=== PATIENT | male | born 1950 | race Caucasian/White ===

== ENCOUNTER → 2023-12-24 14:09 | Outpatient (CLI) | payer OTHER, SELFPAY ==
--- NOTE | 2023-12-24 14:37 | EKG_ITS ---
[address] [address] Test Date: 2023-12-24 Pat Name: Cameron Thao Department: [facility] Room: Gender: Male Optical Worker: TIESHA : 1950 Requested By: Order Number: [id number] Reading MD: Mervin Franco Measurements Intervals Anita Rate: 73 P: 55 MS: 226 QRS: 37 QRSD: 70 T: 25 QT: 344 QTc: 378 Interpretive Statements Sinus rhythm with marked sinus arrhythmia with 1st degree AV block Electronically Signed On 12-26-2023 18:35:54 PDT by Mervin Franco
[2023-12-24 15:03] LABS: Add Manual Diff / Slide Review NO; Basophils Absolute Auto 100 /uL (0-100); Basophils Percent Auto 1.1 % (0-2); Eosinophils Absolute Auto 100 /uL (0-450); Eosinophils Percent Auto 2.4 % (2-4); Hematocrit 37.9 % (41-53); Hemoglobin 12.9 g/dL (13.5-17.5); Lymphocytes Absolute Auto 900 /uL (1100-4500); Lymphocytes Percent Auto 17.6 % (25-40); Mean Corpuscular Hemoglobin 32.7 PG (26-34); Monocytes Absolute Auto 500 /uL (0-900); Monocytes Percent Auto 8.5 % (3-14); Neutrophils Absolute Auto 3800 /uL (1500-7000); Neutrophils Percent Auto 70.4 % (50-75); Platelet Count 231 X10^3/uL (150-400); Red Blood Cell Count 3.94 X10^6/uL (4.5-5.9); Red Cell Distribution Width 13.8 % (11.6-14.8); White Blood Cell Count 5.4 X10^3/uL (4.5-11.0)
[2023-12-24 15:19] LABS: Albumin 3.9 g/dL (3.5-5.0); BUN Creatinine Ratio 20.4 (6-22); Blood Urea Nitrogen 19 mg/dL (9-20); C-Reactive Protein Quant < 0.5 mg/dL (<1.0); Calcium 8.7 mg/dL (8.4-10.2); Carbon Dioxide 30 mmol/L (22-32); Chloride 101 mmol/L (98-107); Estimated Glomerular Filt Rate > 60 mL/min (>60); Glucose 290 mg/dL (80-110); HEMOLYSIS < 15 (0-50); Sodium 135 mmol/L (137-145)
[2023-12-24 15:21] LABS: Erythrocyte Sedimentation Rate 10 MM/HR (0-15); Hemoglobin A1C% w Est Avg Glu 7.2 % (4.0-6.0)
[2023-12-24 15:24] LABS: Prealbumin 20.8 mg/dL (17.6-36.0)
[2023-12-24 16:29] LABS: Vitamin D 25 Hydroxy (D3) 30.4 ng/mL (30.0-100.0)
[2023-12-26 03:10] LABS: Fructosamine 298 umol/L (0-285)
== END ==
PROVIDERS: PCP Optometrist; Referring Provider Orthopaedic Surgery Adult Reconstructive Orthopaedic Surgery; Visit Provider Orthopaedic Surgery Adult Reconstructive Orthopaedic Surgery
DX: Z01.818 Encounter for other preprocedural examination (principal); R77.0 Abnormality of albumin
CPT/HCPCS: 36415; 80048; 82040; 82306; 82985; 83036; 84134; 85025; 85651; 86140; 93005

== ENCOUNTER 2024-01-25 10:07 | Inpatient (IN) | payer OTHER, SELFPAY ==
[2024-01-21 08:49] VITALS: BMI 23.5
[2024-01-25] VITALS (21 sets, daily range): BP systolic 69–151; BP diastolic 23–98; PULSE 72–110; RESP 10–22; TEMP 35.7–36.6; O2SAT 92–100; BMI 23.5
--- NOTE | 2024-01-25 | DI.RAD.S_ITS ---
PROCEDURE: XR KNEE RT 1TO2V INDICATIONS: INTER OP RT KNEE REVISION TECHNIQUE: 1 view(s) of the knee acquired. COMPARISON: [facility] [place], XR KNEE ARTHRITIC SERIES , 12/24/2023, 11:47. FINDINGS: Bones: Knee arthroplasty. No acute displaced fracture or dislocation Soft tissues: Postoperative changes. IMPRESSION: Postoperative changes for right knee arthroplasty revision. Dictated by: Gustabo Metzger M.D. on 01/25/2024 at 15:11 Approved by: Gustabo Metzger M.D. on 01/25/2024 at 15:12
--- NOTE | 2024-01-25 | PATH_ITS ---
[facility] Accession Number: [id number] No. of containers..01 Tissue . 01 Material submitted: . femur - ANTERIOR FEMUR RIGHT KNEE . 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 Negative for significant atypia or malignancy. MRV 01/31/2024 1351 Local . 01 Electronically signed: . Brandon Rodriguez MD, Pathologist NPI- [id number] . 01 Gross description: . Specimen is received in formalin, labeled with two patient identifiers and designated anterior femur right knee, and consists of a 8.5 x 3.0 x 0.4 cm huertas-white fibromembranous laminated tissue partially surfaced by yellow lobulated adipose tissue and a red velvety focally hemorrhagic tissue. No bone is identified. Sectioning through the tissue shows focal areas of fibrosis. Curing Press Maintainer section is submitted in cassette A1. ([id number]) /V 01/29/2024 1423 Local . 01 Microscopic: . Microscopic examination reveals papillary proliferation of synovial cells with collections of macrophages, multinucleated giant cells, inflammatory cells, and hemosiderin-laden macrophages. Negative for necrosis, atypia or increased mitotic activity, on help desk representative section examined. . In summary, the histologic features support the diagnosis. . As part of ongoing engagement quality consultant, this case is also reviewed by Dr. Nora Loaiza, who agrees with the interpretation. . 01 Pathologist provided ICD-10: D48.19, M17.11, Z96.651, T84.012A . 01 CPT . 642559 Specimen Comment: A courtesy copy of this report has been sent to [facility] Performed at: [address] [facility] [place] [address] [address] [address], [place], [place] [id number] MD Frantz Prasad MD Phone: [phone]
--- NOTE | 2024-01-25 06:00 | DI.RAD.S_ITS ---
PROCEDURE: XR KNEE RT 1TO2V INDICATIONS: TKA TECHNIQUE: 2 view(s) of the knee acquired. COMPARISON: [facility], , XR KNEE RT 1TO2V, 01/25/2024, 14:55. FINDINGS: Bones: Patient is status post knee joint arthroplasty. Hardware components are in expected positions. Visualized bony structures are intact. Soft tissues: Overlying postoperative changes are noted. IMPRESSION: Expected post-operative appearance of a knee arthroplasty. Dictated by: Herb Sampson M.D. on 01/25/2024 at 17:13 Approved by: Herb Sampson M.D. on 01/25/2024 at 17:13
--- NOTE | 2024-01-25 10:28 | PM.PREOP ---
Pre-operative Note Interval Note History & Physical reviewed/Exam performed by Physician: Yes Changes to H&P: No
[2024-01-25] MEDS: LACTATED RINGERS 1,000 ML 42 ML IV ×2 (10:49→13:44)
[2024-01-25] MEDS: MELOXICAM 7.5 MG TABLET 15 MG PO (10:50)
[2024-01-25] MEDS: ACETAMINOPHEN 325 MG TABLET 975 MG PO ×2 (10:51→21:40)
--- NOTE | 2024-01-25 11:10 | SUR.OPER ---
Supine on padded OR bed. Pillow under head, arms secured on padded armboards <90 degree abduction. Safety belt across torso. Non-operative leg secured with tape over blanket over lower leg. Operative leg secured in DeMayo/Melchor/Nathe positioner. Foam padded brace at thigh of operative leg.
[2024-01-25] MEDS: LACTATED RINGERS 1,000 ML 120 ML IV (11:58)
[2024-01-25] MEDS: CEFAZOLIN 2 GM/100 ML PREMIX 100 ML IV ×2 (12:08→19:46)
[2024-01-25] MEDS: TRANEXAMIC ACID 1,000 MG VIAL 1000 MG INJ ×2 (12:18→15:13)
[2024-01-25] MEDS: ROPIVACAINE/EPI/CLONIDINE/KET 50 ML SYRINGE INJ (12:45)
[2024-01-25] MEDS: fentaNYL 100 MCG/2 ML INJ ×2 (16:35→16:53)
[2024-01-25] MEDS: hydrOXYzine 50 MG/ML INJ 25 MG IM (16:39)
--- NOTE | 2024-01-25 16:41 | PM.OP.1 ---
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 Post-op diagnosis: same Procedure & Clinicians Procedure: Revision of prior unicompartmental knee arthroplasty to constrained stemmed total knee arthroplasty with patellar resurfacing and tibial cone placement Same procedure as scheduled: Yes Surgeon: Magen Hartley Hr Coordinator: Bridgett Muse Anesthesia Type: General, Spinal and Local Operative Notes Findings: Estimated Blood Loss (mL): 200 Procedure in detail: Revision of right medial unicompartmental knee arthroplasty to total knee arthroplasty with constrained polyethylene, stemmed femur and tibia, and tibial cone Implants: Size 7+ Persona Revision Femoral Component with 5 mm Posterior Medial Augment and 14mm X 75 mm Stem Size G Tibial Component with 14mm X 75 mm Stem Size Fixed Tibia Persona Revision Trabecular Metal Tibial Cone Size 20 CCK Polyethylene Insert 35 mm Patellar Button Procedure Summary: This 73-year-old male patient presented to my clinic after referral from an outside orthopedic surgeon for evaluation for catastrophic failure of the prior medial unicompartmental knee arthroplasty. Prior to evaluation with me he had had an MRI which indicated radiographic findings consistent with metallosis. I obtained cobalt and chromium ion levels on him to assess for the possibility of metallosis and these were normal. Given the catastrophic nature of the failure I aspirated the knee and sent it for Synovasure which returned negative. He had severe valgus failure of his knee with substantial lateral wear. Given his radiographic findings I was prepared for various contingencies during today's surgery depending on intraoperative findings. The femur was loose and had significant bone loss posterior medially. The femoral component came off with the standard cut for the distal femoral resection for a typical primary knee. The tibial component was also loose and was able to be tapped out without any bone loss with the entirety of the cement mantle coming with the tibial component and the polyethylene insert. The lateral compartment had severe wear and erosive bone loss as well as what appeared to be bony erosions potentially related to foreign body reactions. I typically do not resurface the patella however given the severe erosive changes in the lateral compartment which were also present on the patella I did resurface in this case. There was instability with both varus and valgus stress in extension indicative of collateral incompetence so a CCK articulation was utilized. Because of the constrained polyethylene I utilized a cone on the tibia to attempt to achieve biologic fixation as well as a 75 mm stem on the tibia. I likewise used a 75 mm stem on the femur. During femoral component insertion there was a fracture in the femoral metaphysis. I managed this with cables ring at the fracture site as well as a 2nd cable above the fracture site. I remain unsure with the root cause of the patient's component failure was, as he had severe lateral compartment wear, dual component loosening, collateral ligament incompetence, a large foreign body reaction throughout his synovial tissues and bony erosion behind his femoral component. Procedure in Detail: This patient was seen preoperatively and evaluated for knee pain at the site of a prior unicompartmental knee arthroplasty. Their pain correlated with radiographic changes demonstrating significant degeneration in the knee joint. The risks and benefits of continued nonoperative management versus operative management were discussed at length and all of the patient?s questions were answered. Additional educational materials providing further details beyond our discussion in clinic were provided via a publicly available patient education video which included the incidence of medical complications associated with total knee arthroplasty, reasons for revision following total knee arthroplasty, and patient satisfaction rates following total knee arthroplasty. That video can be accessed at [email or web address] . With this understanding of the risks inherent to the procedure, the patient elected to move forward with operative management. Following preoperative optimization, the patient was scheduled for surgery. The patient was met in the preoperative holding area the day of the procedure and all questions were answered. The patient?s nares were swabbed with betadine in order to decolonize them from MRSA. Informed consent was signed and the right limb was marked with indelible ink.? The patient was brought back to the operating room where anesthesia was induced. The patient was transferred to the operating table and all bony prominences were padded. The operative site was prepped and draped in the usual sterile fashion. A second prep stick was utilized following drape placement. The incision was marked corresponding to the medial aspect of the tibial tubercle and the patella. Ioban was wrapped circumferentially around the knee. Prior to incision, tranexamic acid and cefazolin were administered. Templating images were displayed. A timeout procedure was performed verifying the patient?s identity, medical comorbidities, allergies, relevant medications, anesthesia type and the surgical plan. All present were in agreement. The assistance of a physician speech correction assistant was required for positioning, room setup, soft tissue retraction and wound closure. Without this assistance, the procedure would have been significantly more challenging and time consuming.?? The tourniquet was inflated prior to incision. I made an anterior incision over the knee, dissected through the subcutaneous tissues and identified the lateral border of the VMO. Medial and lateral soft tissue flaps were developed. A medial parapatellar arthrotomy was performed ensuring that adequate capsular tissue would remain for closure at the conclusion of the procedure. The hip was brought into extension and the medial soft tissues were released off the joint line of the tibia. Tissue overlying the distal anterior femur was released to allow for later assessment for anterior notching but left in place. A portion of the retropatellar fat pad was excised while protecting the patellar tendon. The patella was everted. The patella was resurfaced and prepped for final component insertion. Osteophytes were excised and a lateral facetectomy was performed. The patella was released from its everted position.?? I noted abundant rust colored synovial tissue around the anterior femur as well as in the medial and lateral gutters. I obtained several samples of this and sent them for culture and histology. I did not have the typical appearance of metallosis which is typically more adams. Some of the tissue can be seen in the photograph above. I flexed the knee to 90 degrees and placed retractors to allow access to the notch. An opening reamer was used to gain access to the femoral canal and an intramedullary beverly was introduced into the canal. Diaphyseal fit was obtained in order to allow a distal femoral resection at 5 degrees relative to the anatomic axis, thereby aiming to achieve mechanical alignment of the eventual implant. A +1 resection was planned and assessed using an liss wing. I then made the cut using a sagittal saw. The femoral component fell off when I made the distal femur cut. The posterior femur completely disengaged not leaving behind any cement or bone and exposing a large void in that area. The distal femur bone came off with the resection but immediately disengaged from the cement mantle. This provided additional access to the femoral notch. The ACL and PCL were excised. Retractors were placed on the lateral and medial tibia. I hyperflexed the knee while externally rotating it to sublux the tibia anteriorly. I placed a PCL retractor posteriorly and used this to provide additional anterior subluxation. The remainder of the PCL root was released. An intramedullary reamer was used in the ACL footprint to provide access to the tibial canal. An extramedullary guide was positioned to allow a resection perpendicular to the anatomic and mechanical axes of the tibia, thereby aiming to achieve mechanical alignment of the eventual implant. I tapped on the tibial component with a Manley elevator and it came out of the tibia immediately. It did not take any bone with it. The cement remained attached to the tibial component. A +2 resection off the undersurface of the resected tibia was planned and the tibial cutting jig was pinned in place. I evaluated the cut depth, varus-valgus alignment and slope of the planned tibial resection and deemed them satisfactory. I cut the tibia with a sagittal saw while using retractors to protect the MCL, patellar tendon, and posterolateral structures.? The cut surface of the tibia can be seen in the photograph above The knee was repositioned in extension and the [employer]zion soft tissue balancing gauge was introduced. This demonstrated that the knee was opened to 16 mm with only 40 lb of pressure and had gross instability with both varus and valgus stress. At this point I transitioned from my initial plan to utilize medial congruent components to a plan to use constrained components. The primary implant instruments were removed from the room, revision instruments which had been brought into the hospital as a contingency plan should something like this be found intraoperatively were opened, the tourniquet was temporarily let down, and I soaked the surgical site in dilute Betadine and peroxide while we transitioned from a primary type knee to a revision type knee. I utilized a measured resection guide to plan a 3 degree externally rotated cut in the femur. Because of the bone loss in the lateral compartment I ensured that I placed the foot of the measured resection guide on an area that still had some bone and I put the femoral component temporarily back in place to use it as a reference for the posterior femoral cortex. I measured the femoral sizing and placed a 4 in 1 block. I then prepped for the box cut for a revision femur. ?I likewise prepped for the intramedullary stem which would be 75 mm. I then moved to the tibia. I planned out my tibial positioning. Initially I had utilized a 3 degree tibial slope planning to use primary components so I planned to utilize a primary tibial base plate with a stem extension on the end of it to preserve my initial 3 degree cut and avoid additional bone loss given the laxity already being demonstrated throughout the case. I prepped the keel and stem for the tibia and then prepped for a cone. Examining the cones on the back table with the primary femur I noted that the cone would have to be recessed significantly down the tibial canal to allow for the keel from the primary base plate to rest inside the fins of the cone. I therefore returned to my cone prep set up and broached down deeper to sink the cone deeper. At this point in time I was able to trial components. Sizing was appropriate on both the femoral and tibial sides although there was persistent varus and valgus laxity particularly in extension which could not be corrected as the trials were disengaged from the base plate. I therefore proceeded with plans to utilize CCK articulation to compensate for this instability. I soaked the wound again in dilute Betadine and peroxide. The components were prepped on the back table. Cement was mixed and the cone was placed down the tibia. Cement was placed down the tibial canal ensuring that it did not interfere with the cone bone interface. The tibial component was placed and impacted down. The tibia was reduced underneath the femur. The femoral component was placed. I noted a crack in the femur during insertion. I placed the polyethylene trial and put the knee in extension. I placed the patellar component, brought cables into the room as well as a reduction clamp, placed the reduction clamp on the femur, placed a cable around the fracture site, extended the incision proximally to identify the proximal extent of the fracture, and placed a additional cable above the proximal extent of the fracture. I trialed 16, 18, and 20 mm polyethylene inserts. I found that the patient was still able to achieve full extension with a 20 mm insert. I had used the 7+ femur to minimize flexion instability but was still able to achieve femoral flexion past 115? with the [address]. This was the largest polyethylene in this set. The 20 mm polyethylene was inserted. Cement was removed from around the femur and tibia including a large amount of cement in the femoral notch which had impinged on the polyethylene insert initially. A mixture of Ropivacaine, Epinephrine, Clonidine and Toradol was infiltrated throughout the soft tissues into structures including the VMO, patellar tendon, quadriceps tendon, MCL and femoral periosteum. A low adductor canal block was also performed using this mixture unless one had been placed preoperatively by anesthesia. The knee was copiously irrigated with pulse lavage. Once cement had been allowed to dry the knee was again trialed. I noted that now that the constrained polyethylene was inserted the collateral stability was improved due to the constrained insert. There was full extension without hyperextension. Flexion gap tension was appropriate. The arthrotomy was closed with absorbable interrupted suture ensuring that this extended to the top of the arthrotomy. This was backed up with running barbed suture throughout the arthrotomy. The skin was closed with 2-0 and 3-0 sutures. Surgical glue was applied and a soft dressing was placed.?The sponge, instrument and needle counts were reported as being correct at the end of the case.??No obvious complications occurred. The patient was transferred from the operating table back to a stretcher. The patient emerged from anesthesia without difficulty and was taken to the PACU in a stable condition.? Plan for aftercare: Weightbearing as tolerated Mobilization as soon as the patient has recovered from anesthesia. If physical therapists are unavailable at the time the patient is ready to ambulate, then nursing staff should help patient ambulate Aspirin 81 twice per day for DVT prophylaxis Utilize insulin pump for blood glucose control during hospitalization. We will also provide supplemental low-dose sliding scale insulin Cefadroxil 500 mg twice per day for 7 days for PJI prophylaxis Tatiana wound VAC dressing to remain in place for 2 weeks. It will after 7 days at which point the cord can be removed in it can be used as a normal dressing until follow-up Multimodal pain regimen with no IV opioids ordered Anticipate discharge home tomorrow Follow up at [facility] in 2 weeks Detailed postoperative instructions available at [email or web address]
[2024-01-25] MEDS: HYDROMORPHONE 1 MG INJ IV (17:02)
--- NOTE | 2024-01-25 17:05 | SUR.PHASEI ---
Pt came into PACU fighting and awake. Pt was hypotensive and sweating. Pt states he is in pain and he was squirming. Pt might have voided he was so wet. Pt was givein fluids and pain medication. Pt had Xray. Pt was given visteril. Blood sugar checked. Pt continued to squirm and move for about 30- 45 minutes pt finally settling down and pain is under control. Pt appears comfortable and RNs changed pt's gown and bed. It took 3 RNs to settle pt and get his condition under control. Pt currently resting quietly with pain undercontrol and blood pressure stable.
--- NOTE | 2024-01-25 17:21 | SUR.PHASEI ---
Report given to Marlene Oh RN
--- NOTE | 2024-01-25 18:24 | PM.PN.1 ---
Subjective Subjective Interval history: Patient seen postop. Explained the complex nature of his case to his family. He is still somewhat sedated and complaining of pain. His dressing is clean and his sensorimotor function is intact in his foot. His knee is stable with varus and valgus stress. Has had some bradycardia postoperatively - Will place on telemetry overnight for the bradycardia. Discussed with hospitalist as well, although a formal consultation may not be necessary. There is a questionable history of heart block, which is not listed on his outpatient problem list from his preoperative evaluation from [facility] (in [place] on [address] That visit listed his medical diagnoses as hyperlipidemia and type 1 diabetes only. - WBAT - Insulin pump for blood glucose control. Supplemental insulin if unable to control with pump - Cefadroxil 500 BID for a week for PJI prophylaxis - Follow cultures and pathology but do not wait for these results prior to DC - Tatiana in place. Keep in place until followup. Remove cord when battery dies - ASA 81 BID DVT PPX Exam Vital Signs (past 8 hours): - 01/25/24 11:05 01/25/24 16:13 01/25/24 16:18 Temperature 97.8 F Pulse Rate 90 110 H 97 H Respiratory Rate 16 20 20 Blood Pressure 136/76 81/48 L 70/23 L Pulse Oximetry 99 97 93 Oxygen Delivery Method Room Air Room Air Room Air Oxygen Flow Rate 01/25/24 16:23 01/25/24 16:27 01/25/24 16:33 Temperature Pulse Rate 95 H 90 90 Respiratory Rate 20 22 18 Blood Pressure 69/31 L 92/46 L 88/44 L Pulse Oximetry 97 96 96 Oxygen Delivery Method Room Air Room Air Room Air Oxygen Flow Rate 01/25/24 16:37 01/25/24 16:45 01/25/24 16:46 Temperature 97.0 F L Pulse Rate 95 H 89 95 H Respiratory Rate 20 16 18 Blood Pressure 85/57 L 108/59 L 103/54 L Pulse Oximetry 96 100 96 Oxygen Delivery Method Room Air Simple Mask Simple Mask Oxygen Flow Rate 3 3 01/25/24 17:02 01/25/24 17:07 01/25/24 17:17 Temperature Pulse Rate 79 80 86 Respiratory Rate 12 12 16 Blood Pressure 105/52 L 100/50 L 93/47 L Pulse Oximetry 99 99 92 Oxygen Delivery Method Nasal Cannula Nasal Cannula Nasal Cannula Oxygen Flow Rate 3 2 2 01/25/24 17:26 01/25/24 17:34 01/25/24 17:40 Temperature 97.2 F L 97.0 F L Pulse Rate 83 84 92 H Respiratory Rate 16 10 L 20 Blood Pressure 97/53 L 98/50 L 104/50 L Pulse Oximetry 99 100 Oxygen Delivery Method Nasal Cannula Nasal Cannula Nasal Cannula Oxygen Flow Rate 2 2 2 01/25/24 17:44 Temperature Pulse Rate 86 Respiratory Rate 12 Blood Pressure 108/52 L Pulse Oximetry 99 Oxygen Delivery Method Nasal Cannula Oxygen Flow Rate 2 Oxygen Delivery Method Nasal Cannula Oxygen Flow Rate 2 ON LICENSE OF [facility] Medical History (Updated 01/21/24 @ 09:19 by Breann Jensen RN) History of COVID-19 (~2019) Osteoarthritis Hypothyroidism Uses self-applied continuous glucose monitoring device First degree AV block HLD (hyperlipidemia) Hearing deficit Neuropathy Diabetes Surgical History (Updated 01/21/24 @ 09:14 by Breann Jensen RN) S/P left unicompartmental knee replacement S/P right unicompartmental knee replacement Hx of arthroscopy of right knee Hx of insertion of insulin pump Social History household members: spouse Smoking Status: Former smoker alcohol intake: former Assessment & Plan Time-Based Coding :: [TOTAL MINUTES] spent with patient and on the chart (including review of chart, obtaining history, exam, reviewing outside data, placing orders, documenting exam and treatment plan, and counseling patient) on [DATE].
--- NOTE | 2024-01-25 19:09 | PM.CALLCOV.1 ---
Call Coverage Note Note Date of Patient Contact: 01/25/24 Time of Patient Contact: 18:45 Narrative of Care Provided: Alerted this evening about possible low HR, and patient is on insulin pump therapy. On telemetry HR is in the 80s. If no current symptoms, will see tomorrow AM for formal consultation for medical comanagement and diabetes management. Orders are correctly entered for continuation of his home insulin pump therapy at this time upon my review. EKG ordered, telemetry ordered. If more urgent consultation is needed please reach out to hospitalist team overnight.
[2024-01-25] MEDS: LACTATED RINGERS 1,000 ML 100 ML IV (19:45)
[2024-01-25] MEDS: INSULIN ASPART U 20 EACH SUBCUT (20:00)
[2024-01-25] MEDS: ASPIRIN EC 81 MG TABLET PO (21:38)
[2024-01-25] MEDS: DOCUSATE 100 MG CAPSULE PO (21:39)
[2024-01-25] MEDS: ATORVASTATIN 20 MG TABLET 10 MG PO (21:39)
[2024-01-25] MEDS: OXYCODONE IR 5 MG TABLET PO (23:33)
[2024-01-26 03:51] VITALS: BP 97/56; PULSE 82; RESP 16; TEMP 36; O2SAT 100
[2024-01-26] MEDS: CEFAZOLIN 2 GM/100 ML PREMIX 100 ML IV (04:32)
[2024-01-26] MEDS: LACTATED RINGERS 1,000 ML 100 ML IV (04:32)
[2024-01-26] MEDS: OXYCODONE IR 5 MG TABLET PO ×5 (04:36→23:17)
[2024-01-26] MEDS: LEVOTHYROXINE 75 MCG TABLET PO (06:37)
[2024-01-26] MEDS: ONDANSETRON 4 MG/2 ML INJ IV (06:37)
[2024-01-26 07:43] LABS: Hematocrit 26.3 % (41-53); Hemoglobin 8.9 g/dL (13.5-17.5)
[2024-01-26 08:27] VITALS: O2SAT 98
[2024-01-26] MEDS: ACETAMINOPHEN 325 MG TABLET 975 MG PO ×3 (09:10→20:18)
[2024-01-26] MEDS: MAGNESIUM OXIDE 400 MG TABLET PO (09:11)
[2024-01-26] MEDS: DOCUSATE 100 MG CAPSULE PO ×2 (09:11→20:17)
[2024-01-26] MEDS: ASPIRIN EC 81 MG TABLET PO ×2 (09:11→20:18)
[2024-01-26] MEDS: MELOXICAM 7.5 MG TABLET 15 MG PO (09:11)
[2024-01-26] MEDS: TAMSULOSIN 0.4 MG CAPSULE PO (09:14)
--- NOTE | 2024-01-26 09:16 | P.DS_ITS ---
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 Post-op diagnosis: same Procedure & Clinicians Procedure: Revision of prior unicompartmental knee arthroplasty to constrained stemmed total knee arthroplasty with patellar resurfacing and tibial cone placement Same procedure as scheduled: Yes Surgeon: Magen Hartley Fitness Director: Bridgett Muse Anesthesia Type: General, Spinal and Local Operative Notes Findings: Estimated Blood Loss (mL): 200 Procedure in detail: Revision of right medial unicompartmental knee arthroplasty to total knee arthroplasty with constrained polyethylene, stemmed femur and tibia, and tibial cone Implants: * Size 7+ Persona Revision Femoral Component with 5 mm Posterior Medial Augment and 14mm X 75 mm Stem * Size G Tibial Component with 14mm X 75 mm Stem * Size Fixed Tibia Persona Revision Trabecular Metal Tibial Cone * Size 20 CCK Polyethylene Insert * 35 mm Patellar Button Discharge Providers Provider Date of admission: 01/25/24 10:07 Discharge Date: 01/26/24 Primary care physician: Roby Villarreal OD Consults: 01/25/24 06:00 Consult to Anesthesiology Routine Comment: Consulting Provider: Anesthesiologist Reason for consultation: Regional block for post operative pain control Has provider been notified: No 01/25/24 18:28 Consult to Discharge Planning Routine Comment: Consult to Occupational Therapy Evaluate & Treat Comment: Physician Instructions: Evaluate and treat Consult to Physical Therapy Evaluate & Treat Comment: Physician Instructions: postop TKA protocol Discharge provider: Saadia Bonds PA-C Summary Hospital Course Discharge Diagnosis: 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 On my visit on the morning of POD# 1, there were no recorded episodes of bradycardia. H/H low, but this was expected d/t acute surgical blood loss. RN and pt reported no spontaneous void since surgery, and pts spouse said he was straight-cathed once with 900mL out. There are no surgical reports currently scanned in, but based on the timing of OR and PACU nursing notes, it looks like the procedure was about 5-6 hours in length and that no catheter was placed in surgery, so need for straight cath d/t hyperdistension of bladder is not surprising. C/o pain in right knee following surgery that is better this morning. C/o dizziness that has improved with sitting up. Has not yet worked w/ PT. Exam Vital Signs (past 8 hours): - 01/26/24 03:51 01/26/24 08:27 Temperature 96.8 F L Pulse Rate 82 Respiratory Rate 16 Blood Pressure 97/56 L Pulse Oximetry 100 98 Oxygen Delivery Method Room Air Oxygen Flow Rate 0 Oxygen Delivery Method Room Air Oxygen Flow Rate 0 Narrative Exam Narrative: 5/5 hip flexors, DF, PF, EHL; 4/5 quadriceps, hamstrings on right. Sensation to light touch intact throughout RLE, calf soft and compressible. PINKY functioning; SARIKA CDI. Objective Labs 01/26/24 06:53 Labs: Laboratory Results - last 24 hr 01/26/24 06:53 Hgb 8.9 L Hct 26.3 L PFSH Medical History (Updated 01/21/24 @ 09:19 by Breann Jensen RN) History of COVID-19 (~2020) Osteoarthritis Hypothyroidism Uses self-applied continuous glucose monitoring device First degree AV block HLD (hyperlipidemia) Hearing deficit Neuropathy Diabetes Surgical History (Updated 01/21/24 @ 09:14 by Breann Jensen RN) S/P left unicompartmental knee replacement S/P right unicompartmental knee replacement Hx of arthroscopy of right knee Hx of insertion of insulin pump Social History household members: spouse Smoking Status: Former smoker alcohol intake: former Discharge Assessment & Plan Assessment and Plan Assessment: 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 Plan of Treatment: 1) POD# 1 s/p right knee revision arthroplasty that was very extensive. While he would like to go home later today if possible, he lives in [place] and he and his want to be sure he is very stable prior to discharge. 2) He will work w/ PT today; may go home later today if able to transfer and ambulate w/ minimal assistance. 3) While he has no h/o BPH and his bladder distension and resultant urinary retention is unsurprising, I will start him on tamsulosin to help with spontaneous voiding. May go home later today if he is able to void independently; he can take tamsulosin as-needed at home. 4) He has postop oxycodone and ondansetron at home. 5) He will need Cefadroxil 500mg BID x 7 days to prevent PJI. Cultures taken intraoperatively are still pending and can be followed up on at his post-op visit. 6) ASA 81 mg BID for VTE prophylaxis. 7) Keep blood glucose <150 for optimal wound healing. Discharge Plan Discharge Plan Patient Disposition: Home Discharge orders & Medications Prescriptions: New oxycodone 5 mg capsule 5 mg PO Q4H PRN (Reason: pain) Qty: 30 0RF ondansetron 4 mg tablet,disintegrating 4 mg PO Q8H PRN (Reason: nausea and vomiting) Qty: 10 0RF aspirin 81 mg tablet,chewable 81 mg PO BID Qty: 90 0RF cefadroxil 500 mg capsule 500 mg PO BID Qty: 14 0RF tamsulosin 0.4 mg capsule 0.4 mg PO DAILY PRN (Reason: urinary retention) Qty: 10 0RF Continued meloxicam 15 mg Tablet 15 mg PO DAILY acetaminophen 500 mg Tablet 1,000 mg PO TID insulin aspart U-100 [Novolog U-100 Insulin aspart] 100 unit/mL Solution 20 unit continuous subcutaneous infusion CONT simvastatin 20 mg Tablet 20 mg PO BEDTIME magnesium oxide 400 mg magnesium Tablet 400 mg PO QAM levothyroxine 75 mcg tablet 75 mcg PO DAILY Follow up/Referrals: Roby Villarreal OD [Primary Care Provider] - Magen Hartley MD [Physician] - (Follow up at [facility] as scheduled in 2 weeks. ) Diet/Activity/Treatments Diet: Diet as Tolerated Diet comment: Keep blood sugars in range of 70-150. Activity: Weightbearing as tolerated. Cold/Heat Therapy: Ice to the knee for additional pain control. Skin/Wound/Dressing Care Report to your healthcare provider any signs of infection, such as:: chills, fever, night sweats, unusual drainage and unusual redness Dressing: May remove SARIKA wrap and cotton padding and shower on 01/28/2024. Keep PINKY dressing in place until follow up in office. In 5-7 days, battery light will start blinking red, at which point you can remove the battery pack and dispose of it, but keep the dressing on. No bathing or otherwise soaking incision. Call the office if the dressing becomes saturated inside. Visit Report/Discharge Packet Instructions: DI for Knee Replacement, DI for Prescription Opioid Use Stand Alone Forms: Patient Portal/API, Stroke Signs & Symptoms, Surgery Discharge Discharge Data Primary Care Provider: Roby Villarreal VTE Deep Vein Thrombosis/Pulmonary Embolism Present on Admission: No
--- NOTE | 2024-01-26 09:55 | PT.IIE ---
Current Diagnoses Unilateral primary osteoarthritis, right knee (01/25/24) Broken internal right knee prosthesis, initial encounter (01/25/24) Presence of right artificial knee joint (01/25/24) Surgery Performed Operation Date: 01/25/24 11:45 Actual Procedures p Total Knee Arthroplasty Revision- uni to total KNEE ARTHROPLASTY REVISION WITH FEMORAL FRACTURE FIXATION(Right) - Magen Hartley MD Surgical History (Last Updated 01/21/24 @ 09:14 by Breann Jensen RN) Hx of arthroscopy of right knee Hx of insertion of insulin pump S/P left unicompartmental knee replacement S/P right unicompartmental knee replacement Medical History (Last Updated 01/21/24 @ 09:19 by Breann Jensen RN) Diabetes First degree AV block Hearing deficit History of COVID-19 (~2019) HLD (hyperlipidemia) Hypothyroidism Neuropathy Osteoarthritis Uses self-applied continuous glucose monitoring device Physical Therapy Inpatient Evaluation/Re-Eval M1 PT/OT-IP Prior Functional Status Start: 01/26/24 12:37 Freq: NEEDED Status: Active Protocol: Document 01/26/24 09:55 AB (Rec: 01/26/24 12:55 AB [id number]) Medical Review Prior Functional Status Medical History Reviewed Yes Communication able to make needs known Mobility and Gait pt stated that he was modified independent with all mobilities. Has been ambulating using a 4WW for the past 3 months due to knee pain but without AD prior to that. Social History Household Members spouse Living Arrangements House Number of Floors (Floors) One Floor Number of Stairs To Enter/Railing? 3 steps L rail ascending+ wall to enter 1 step down to bedroom level Home Environment High Toilet,Walk in Shower, Built-In Shower Seat Home Equipment Front Wheel Walker,Four Wheel Walker,Bedside Commode,Grab Bars In Shower M2 PT-IP Current Condition Start: 01/26/24 12:37 Freq: NEEDED Status: Active Protocol: Document 01/26/24 09:55 AB (Rec: 01/26/24 12:55 AB [id number]) Physical Therapy Current Condition Current Condition Evaluation Date 01/26/24 Treatment Diagnosis s/p R TKA revision; difficulty in walking Onset Date 01/25/24 M3 PT-IP Subjective Start: 01/26/24 12:37 Freq: NEEDED Status: Active Protocol: Document 01/26/24 09:55 AB (Rec: 01/26/24 12:55 AB [id number]) Subjective Physical Therapy Visit Type Type Initial Evaluation Visit Start Time 09:55 Visit Stop Time 11:05 Number of LEGAL OPERATIONS MANAGER Visits 0 Physical Therapy Visit Comments Patient Comments agreeable to do PT Therapy Pain Assessment Pain When Pain Assessed At Rest Pain Present Pain Present Pain Reported Location Right Knee Intensity 6 Scale Used Numeric (0 - 10) Pain Management Techniques Apply Cold,Distraction, Modification of Treatment,Re- positioning,Timing of Activity with Medications M4 PT-IP Mobility and Gait Start: 01/26/24 12:37 Freq: NEEDED Status: Active Protocol: Document 01/26/24 09:55 AB (Rec: 01/26/24 12:55 AB [id number]) PT-Bed Mobility Assessment Supine to Sit Supine to Sit Standby Assistance PT-Transfer Assessment Sit to and From Stand Sit to and from Stand Contact Guard Assistance, Minimal Assistance,1 Person Assistance,Use of Upper Extremities Equipment Transfer Assistive Device Gait Belt,Front Wheeled Walker Orthotic/Prosthetic Devices or Brace: No Transfers Transfer Destination Chair Transfer Technique ambulated Transfer Ability Level of Assist Contact Guard Assistance, Minimal Assistance,1 Person Assistance,Use of Upper Extremities Comments Mobility Comments pt supine in bed and spouse in room . obtained PLOF and home set up from pt and spouse. BP in supine: 112/49. per spouse, pt has dx of orthostatic hypotension. pt also has an insulin pump on. post-op folder provided and reviewed contents with pt. pt completed supine to sit SBA. able to sit on EOB SBA. BP in sittin/49. pt completed sit to stand min A and was able to stand CGA for balance. c/o slight dizziness. pt sat back on EOB. BP checked: 104/ 50. pt rested. BP checked again: 110/57. pt completed sit to stand again CGA and cues for safety as pt can be impulsive. ambulated to the chair using FWW CGA to min A ~ 15 ft. pt tend to hop during turning. cued to correct. pt sat back on the chair. BP checked: 109/49. pt rested. pt agreed to walk again. sit to stand from chair CGA and ambulated in room CGA to occasional min A ~ 30 ft and cues for safety. pt sat back on chair. BP: 102/50. positioned pt on the chair. call light and table placed within reach. spouse expresses concerns about pt's low BP and stated that she is not comfortable for pt to go home until BP is back to normal. informed spouse that PT will see pt again this afternoon and possible caregiver training. spouse agreed. Gait Assessment Gait Gait Assistance Required: Contact Guard Assist,Minimum Assistance Distance (Feet) 30 Able to Maintain Weight Bearing Status Yes During Gait Assistive Devices Assistive Device Gait Belt,Front Wheeled Walker Orthotic/Prosthetic Devices or Brace: No Gait Deviations General Gait Pattern Antalgic,Decreased Stride Length,Decreased Feet Clearance Factors Limiting Gait Function Factors Limiting Gait Function Decreased Activity Tolerance, Decreased Strength,Difficulty Following Directions,Limited Range of Motion,Pain,Poor Balance,Poor Safety Awareness PT-Balance Assessment Sitting Balance and Reactions Static Sitting Balance Ability Normal Dynamic Sitting Balance Ability Good Standing Balance and Reactions Static Standing Balance Ability Fair Dynamic Standing Balance Ability Fair Device Used FWW M5 PT-IP Objective Assessments Start: 01/26/24 12:37 Freq: NEEDED Status: Active Protocol: Document 01/26/24 09:55 AB (Rec: 01/26/24 12:55 AB [id number]) Orientation Orientation/Cognition Level of Alertness Alert Orientation Name,Place,Situation Language Function Ability No Deficits Noted Safety Awareness Decreased Safety Awareness Memory Description No Deficits Noted Gross Range of Motion Lower Extremity ROM Assessment Right Impaired Impairments R knee flexion: ~ 60 deg R knee extension: ~ 10 deg less to 0 Strength Lower Extremity Strength Assessment Right Impaired Hip 4/5 Knee 4-/5 Coordination Assessment Gross Coordination Gross Coordination WNL Sensation Assessment Sensation Gross Sensation WNL Muscle Tone Muscle Tone WNL Yes M6 PT-IP Treatment Start: 01/26/24 12:37 Freq: NEEDED Status: Active Protocol: Document 01/26/24 09:55 AB (Rec: 01/26/24 12:55 AB [id number]) Physical Therapy Treatment Education Education Provided Precautions,Weight Bearing Status,Post-Op Packet,Safety M7 PT-IP Assessment and Plan Start: 01/26/24 12:37 Freq: NEEDED Status: Active Protocol: Document 01/26/24 09:55 AB (Rec: 01/26/24 12:55 AB [id number]) PT Summary Assessment and Plan Potential Rehabilitation Potential Fair Status of Condition at Evaluation Evolving Summary Impairments Pain,ROM,Strength,Balance, Coordination,Sensation,Tone, Cognition,Bed Mobility, Transfers,Gait,Activity Tolerance Assessment Summary pt is a 73 y/o M s/p R TKA revision POD 1. pt is WBAT on RLE. pt requiring CGA to min A with mobility using FWW. presents with slightly low BP with c/o dizziness with initial standing but symptom improved but BP continues to be low. will continue to assess progress. caregiver training will be conducted when appropriate as well as stair climbing training. Goals Bed Mobility Goal Independent Transfer Goal Independent,Front Wheeled Walker Gait Goal Independent,Front Wheel Walker Gait Distance 200 Other Goals up/down 1 step using FWW SBA up/down 3 steps L rail SBA Days to Meet Goals 5 Frequency of Treatment Frequency Of Treatment Twice a Day Treatment Plan Physical Therapy Treatment Plan Bed Mobility Training,Transfer Training,Gait Training, Therapeutic Exercise,Balance Retraining,Post Op Education, Discharge Planning,Hot or Cold Pack,Neuromuscular Re-ed, Coordination Retraining,Manual Therapy Weight Bearing Status Weight Bearing Status Weight Bear as Tolerated Allowed Weight Bearing Amount (enter % RLE WBAT or #) (%) Recommendations To Nursing Amount of Assist Needed 1 Person Assist Discharge Recommendations PT Discharge Recommendations Home with Assistance, Outpatient PT Transportation Needs at Discharge Private Vehicle
[2024-01-26] MEDS: INSULIN ASPART U SUBCUT (11:00)
--- NOTE | 2024-01-26 12:59 | CM.DANOTE ---
Patient is a 73 yo male who was admitted Inpt Status on 01/25/24 for RTKA revision total. Pt has [facility] for insurance and his PC is Roby Villarreal. EMR was reviewed. Per Ortho PA, pt tolerated procedure well and to work with PT today to determine if medically stable to d/c home today vs tomorrow. Per PT, pt participated well but some bp issues and will attempt stairs and final CG training this afternoon around 1300. SW met bedside with pt and spouse and explained role and they confirm they live at home in [place] and both are active and independent and pt has a cane and walker at home from prior knee surgeries. They have local family that are supportive but are currently on vacation and not in town. Pt and spouse are agreeable with discharge home once they confirm he can manage stairs as he has 3 to get into the house and then one step down for the bedroom. They deny hx of SNF but used [facility] after a previous knee revision and felt [facility] was very helpful. Pt currently established with outpt PT and have appointment scheduled in a few days but currently feel [facility] needed prior to outpt PT and that pt would meet homebound criteria. Requesting referral to [facility]. SW faxed new referral to [facility] and called to alert them and faxed completed F2F and HH orders. Plan: SW to follow for further PT today around 1300 to confirm safe d/c home today vs tomorrow with [facility] pending progress. DAMI Arrington Discharge Planning/Care Management CM Discharge Assessment Start: 01/26/24 12:56 Freq: Status: Active Protocol: Document 01/26/24 12:57 BF (Rec: 01/26/24 12:59 [id number]) Discharge Planning Assessment Assigned Machine Worker DAMI Harrison DPOA/Assigned Designee Name spouse Ruthy Contact Information [phone] Advance Directives? Yes Advance Directives on File No History Provided By Patient,Significant Other, Medical Record Has Patient been admitted in last 30 No days? Prior Living Arrangements House Household Members spouse Type of transporation used prior to Drives own vehicle admit Independent with ADL's Yes Is patient alert and oriented? Yes Needs Assistance With Managing Medications Caregiver for Another No Community Services used prior to Physical Therapy admission: DME Already Rented / Owned FWW / Walker,Cane Patient/Family Preference Home with Home Health Barriers to Discharge No Discharge Plan Home with Home Health Community Services Physical Therapy Transportation Arrangement Spouse bedside and confirms she will transport at d/c Referrals Initiated Home Health If patient plan is home with home health Yes : Has signed face to face form been completed? Medicare Choice List Provided Yes Medicare choice list reviewed on patient,family electronic tablet with SNF/HH Preference [facility], hx of [facility] for prior knee surgeries Whiteboard Updated in Patient Room with Yes name and ext. # of Machine Worker Review Status In Process Please Provide Date Initial DC 01/26/24 Assessment Was Performed Next Review Type Continued Stay Review Pre-Anesthesia Assessment Start: 01/21/24 08:49 Freq: Status: Complete Protocol: Document 01/21/24 08:49 CAB (Rec: 01/21/24 09:29 CAB [id number]) Pre-Anesthesia Assessment Patient Information Reviewed Via Phone Assessment Assessment Completed With Patient,Spouse Diagnostic Results BMP/CMP,CBC,EKG Comment Labs/EKG @ 12/24/23 Primary Care Provider Roby Villarreal Seen Specialist in Last 12 Months Yes Specialist Seen Gi Tech,Orthopedist Primary Language Mohawk Electrical Software Engineer Required No Height 170.18 cm Weight 68.039 kg Body Mass Index (BMI) 23.5 Hearing Ability Hearing Impaired,Use of Hearing Aid Visual Assist Glasses Dentition Type Teeth, Natural Present Barriers to Learning Auditory,Visual Hx Anesthesia Reactions No Hx Family Anesthesia Reaction No Hx Malignant Hyperthermia No Hx Blood Transfusions No Anesthesia Review Requested No Director Of Alumni Relations No alcohol intake former Smoking Status Former smoker how long ago did patient quit smoking Quit in the 60's Substance Use Type does not use Pain Present Pain Reported Musculoskeletal Symptoms Abnormal Gait,Difficulty Walking,Joint Pain History of Falling (Recent or History of No ) Patient is completely paralyzed or No completely immobile Prosthesis or Orthotic Device Front Wheel Walker Is patient on oxygen? No Does patient have GARCIA/SOB No Hx Sleep Apnea No Currently Taking a Beta Leia No Can You Climb a Flight of Stairs Without Yes SOB Hx Chest Pain No Hx SOB No Hx Syncope or Dizziness No Anti-Coagulant Therapy No Has a Baker Apprentice No Cardiac Testing No Hx Pacemaker/ICD No Pacemaker Rep Required? No Cardiac Clearance Received No Diet Type At Home Regular,Low Carb Dysphagia No Gastrointestinal Symptoms None Urinary Catheter Present No Hx Urinary Self Catheterization No Diabetes Yes: Type I HgbA1C 7.2 Date 12/24/23 Hx Drug Resistant Organism No Presence of External or Internal Medical Yes: Insulin pump, CGM, Devices bilateral knee Marital Status Lives With spouse Current Living Arrangements House Number of Floors (Floors) One Floor Number of Stairs To Enter/Railing? 3 Support System Spouse Does the Patient Have Assistance After Yes Surgery Patient Discharge Plan Description Return Home Comment Pt advised overnight length of stay per surgeon Feels Safe in Current Environment Yes Been Physically Hurt or Threatened By a No Person in Current Environment Do you have thoughts of harming yourself None or others? Are you currently considering suicide? No Do you have a plan to hurt yourself or No Plan others? Do You Have Any Spiritual Beliefs That No May Affect Your HC Choices? Do You Have Any Cultural Practices That No May Affect Your HC Choices? Comment Luis Antonio Who Can We Speak to About Patient's Care Family, friends Identifying Code for Release of Patient Declines to issue Information Health Care Proxy/Next of Kin Ivonne () Health Care Proxy Emergency Contact Name Ivonne () Emergency Contact Advance Directives? Yes Advance Directives on File No Requested Patient Bring Advanced Yes Directives DOS Power of Pavilion Cutter Yes Power of Pavilion Cutter Name Ivonne () Power of Pavilion Cutter PAC Instructions Assistance for 24 hours post- op,Diabetes instructions, Durable medical equipment, Medications to take/avoid, Nasal antibiotic,No ETOH/ petroleum product on skin DOS, NPO,Post-op transportation,Pre -surgical wash,Sensory aids, Sturdy shoes/comfortable clothes,Do not bring valuables and remove jewelry
--- NOTE | 2024-01-26 13:15 | PT.IPTN ---
Current Diagnoses Unilateral primary osteoarthritis, right knee (01/25/24) Broken internal right knee prosthesis, initial encounter (01/25/24) Presence of right artificial knee joint (01/25/24) Surgery Performed Operation Date: 01/25/24 11:45 Actual Procedures p Total Knee Arthroplasty Revision- uni to total KNEE ARTHROPLASTY REVISION WITH FEMORAL FRACTURE FIXATION(Right) - Magen Hartley MD Physical Therapy Treatment Note M2 PT-IP Current Condition Start: 01/26/24 12:37 Freq: NEEDED Status: Active Protocol: Document 01/26/24 09:55 AB (Rec: 01/26/24 12:55 AB [id number]) Physical Therapy Current Condition Current Condition Evaluation Date 01/26/24 Treatment Diagnosis s/p R TKA revision; difficulty in walking Onset Date 01/25/24 M3 PT-IP Subjective Start: 01/26/24 12:37 Freq: NEEDED Status: Active Protocol: Document 01/26/24 13:15 AB (Rec: 01/26/24 15:30 AB [id number]) Subjective Physical Therapy Visit Type Type Treatment Note Visit Start Time 13:15 Visit Stop Time 14:30 Number of VERIFYING SPECIALIST Visits 0 Physical Therapy Visit Comments Patient Comments agreeable to do PT M4 PT-IP Mobility and Gait Start: 01/26/24 12:37 Freq: NEEDED Status: Active Protocol: Document 01/26/24 13:15 AB (Rec: 01/26/24 15:30 AB [id number]) PT-Bed Mobility Assessment Supine to Sit Supine to Sit Standby Assistance Sit to Supine Sit to Supine Standby Assistance PT-Transfer Assessment Sit to and From Stand Sit to and from Stand Contact Guard Assistance,1 Person Assistance,Use of Upper Extremities Equipment Transfer Assistive Device Gait Belt,4 Wheeled Walker Orthotic/Prosthetic Devices or Brace: No Transfers Transfer Destination Bed Transfer Technique ambulated Transfer Ability Level of Assist Contact Guard Assistance Comments Mobility Comments pt sitting on the chair and agreeable to do PT. spouse in room. BP monitored. educated pt on use of 4WW. 4WW adjusted for pt. BP sitting on the chair with LE elevated: 95/41. positioned pt to sit upright on chair and BP checked: 110/ 44. pt completed sit to stand CGA and was able to stand using 4WW for support. BP with standing 88/47 with c/o slight dizziness and pt sit back down. BP checked again: 119/44. pt stood up again. BP in standin/46. pt stood up for ~ 2 more minutes and BP checked: 115/56. pt sat back on chair. Caregiver training conducted. educated spouse on how to use safety belt and how to assist pt. spouse was able to put safety belt on pt, assisted pt with sit to stand and ambulated with pt using 4WW CGA to EOB. pt completed bed mobility SBA. pt with no c/o dizziness/ lightheadedness/ nausea. pt agreed to do stairs. completed sit to stand from EOB CGA with spouse assisting and ambulated in the hallway ~ 75 ft using 4WW CGA. assisted pt to the stairs. stair climbing training: educated pt on how to do stairs and educated spouse on how to assist pt. pt completed steps using L rail ascending + R side wall CGA to min A and cues. spouse assisting. PT providing cues to pt and spouse. pt sat on w /c and rested. agreed to do stairs again. pt completed with spouse assisting and cueing CGA to min A. pt towards the end of doing steps has difficulty following directions . instructed pt to sit back on w/c. assisted pt back to his room and BP checked: 86/46. nurse aware. pt rested on chair and BP checked again after a few minutes: 87/49. positioned pt next to bed and assisted pt back to bed CGA and cues. pt completed sit to supine SBA. positioned pt in bed. BP checked: 97/51. call light and table placed within reach. BP at end of PT session supine in bed: 97/46. nurse aware of pt's orthostatic hypotension. spouse stated that she will be staying in the room with pt overnight. caregiver training set up at 9 am. Gait Assessment Gait Gait Assistance Required: Standby Assistance,Contact Guard Assist Distance (Feet) 75 Able to Maintain Weight Bearing Status Yes During Gait Assistive Devices Assistive Device Gait Belt,4 Wheeled Walker Orthotic/Prosthetic Devices or Brace: No Gait Deviations General Gait Pattern Antalgic,Decreased Stride Length,Decreased Feet Clearance Factors Limiting Gait Function Factors Limiting Gait Function Decreased Activity Tolerance, Decreased Strength,Difficulty Following Directions,Limited Range of Motion,Pain,Poor Balance,Poor Safety Awareness Stair Climbing Assessment Evaluation Level of Assist On Stairs Contact Guard Assistance, Minimal Assistance Devices Stair Climbing Assistive Devices Left Railing Technique/Endurance Stair Climbing Direction Ascend and Descend Stair Climbing Technique Step to Step Number of Steps Climbed 3 Stair Climbing Set # Repetitions (reps) 2 M5 PT-IP Objective Assessments Start: 01/26/24 12:37 Freq: NEEDED Status: Active Protocol: Document 01/26/24 09:55 AB (Rec: 01/26/24 12:55 AB [id number]) Orientation Orientation/Cognition Level of Alertness Alert Orientation Name,Place,Situation Language Function Ability No Deficits Noted Safety Awareness Decreased Safety Awareness Memory Description No Deficits Noted Gross Range of Motion Lower Extremity ROM Assessment Right Impaired Impairments R knee flexion: ~ 60 deg R knee extension: ~ 10 deg less to 0 Strength Lower Extremity Strength Assessment Right Impaired Hip 4/5 Knee 4-/5 Coordination Assessment Gross Coordination Gross Coordination WNL Sensation Assessment Sensation Gross Sensation WNL Muscle Tone Muscle Tone WNL Yes M6 PT-IP Treatment Start: 01/26/24 12:37 Freq: NEEDED Status: Active Protocol: Document 01/26/24 13:15 AB (Rec: 01/26/24 15:30 AB [id number]) Physical Therapy Treatment Education Education Provided Safety M7 PT-IP Assessment and Plan Start: 01/26/24 12:37 Freq: NEEDED Status: Active Protocol: Document 01/26/24 13:15 AB (Rec: 01/26/24 15:30 AB [id number]) PT Summary Assessment and Plan Potential Rehabilitation Potential Fair Summary Impairments Pain,Strength,Balance, Coordination,Cognition,Bed Mobility,Transfers,Gait, Activity Tolerance Progress Towards Goals Slow Progress due to Medical Issues Assessment Summary pt requiring CGA with ambulation using FWW; CGA to min A for stair climbing. caregiver training initiated but further training needed for stair climbing. pt with episode of orthostatic hypotension with difficulty following directions affecting mobility and safety. will continue to assess. Goals Bed Mobility Goal Independent Transfer Goal Independent,Front Wheeled Walker Gait Goal Independent,Front Wheel Walker Gait Distance 200 Other Goals up/down 1 step using FWW SBA up/down 3 steps L rail SBA Days to Meet Goals 5 Frequency of Treatment Frequency Of Treatment Twice a Day Treatment Plan Physical Therapy Treatment Plan Bed Mobility Training,Transfer Training,Gait Training, Therapeutic Exercise,Balance Retraining,Post Op Education, Discharge Planning,Hot or Cold Pack,Neuromuscular Re-ed, Coordination Retraining,Manual Therapy Other Recommendations and Next Treatment Caregiver trainin01/27/24 Focus @ 9 am: stair climbing ( 3steps and one platform step) Weight Bearing Status Weight Bearing Status Weight Bear as Tolerated Allowed Weight Bearing Amount (enter % RLE WBAT or #) (%) Recommendations To Nursing Amount of Assist Needed 1 Person Assist Discharge Recommendations PT Discharge Recommendations Home with Assistance, Outpatient PT Transportation Needs at Discharge Private Vehicle
--- NOTE | 2024-01-26 14:06 | PC.NURSE ---
Unable to void during the night. Flomax started and pt has been able to void x2. When working w/PT pt was orthostatic, bp 86/44, very dizzy. Dr Moses notified. Order received to give IVF bolus. Cancel d/c for now.
[2024-01-26] MEDS: LACTATED RINGERS 500 ML 1000 ML IV (14:46)
[2024-01-26 19:45] VITALS: BP 110/51; PULSE 91; RESP 14; TEMP 36.4; O2SAT 98
[2024-01-26] MEDS: ATORVASTATIN 20 MG TABLET 10 MG PO (20:19)
[2024-01-27] MEDS: LEVOTHYROXINE 75 MCG TABLET PO (05:47)
[2024-01-27] MEDS: OXYCODONE IR 5 MG TABLET PO (05:47)
--- NOTE | 2024-01-27 07:06 | PM.PNPO.1 ---
Subjective Subjective Date Patient Seen: 01/27/24 Time Patient Seen: 07:06 Interval history: Pt sitting up in bed, spouse in room. Wasn't able to complete stair training yesterday afternoon d/t dizziness; planning to try again today and d/c home if successful. Voiding independently without difficulty. Exam Vital Signs (past 8 hours): Oxygen Delivery Method Room Air Oxygen Flow Rate 0 Narrative Exam Narrative: 5/5 strength in hip flexors, quadriceps, hamstrings, DF, PF, EHL on right. Sensation to light touch intact throughout RLE, calf soft and compressible. PINKY dressing functioning, SARIKA and webril CDI. Objective Labs 01/26/24 06:53 Labs: Laboratory Results - last 24 hr 01/26/24 06:53 Hgb 8.9 L Hct 26.3 L PFSH Medical History (Updated 01/21/24 @ 09:19 by Breann Jensen RN) History of COVID-19 (~2019) Osteoarthritis Hypothyroidism Uses self-applied continuous glucose monitoring device First degree AV block HLD (hyperlipidemia) Hearing deficit Neuropathy Diabetes Surgical History (Updated 01/27/24 @ 07:09 by Saadia Bonds PA-C) S/P left unicompartmental knee replacement S/P right unicompartmental knee replacement Hx of arthroscopy of right knee Hx of insertion of insulin pump Social History household members: spouse Smoking Status: Former smoker alcohol intake: former Assessment & Plan Post-op Assessment and plan (1) Status post revision of total replacement of right knee: Assessment and Plan narrative: D/c home after PT if PT agrees. Per CM, HH requested; appropriate based on pts distance from healthcare/rehab providers. Postoperative Procedures: Procedures Operation Date: 01/25/24 11:45 Actual Procedure Side Surgeon p Total Knee Arthroplasty Revision- uni to total KNEE ARTHROPLASTY REVISION WITH FEMORAL FRACTURE FIXATION Right Magen Hartley MD Postoperative day: 2 Quality VTE Deep Vein Thrombosis/Pulmonary Embolism Present on Admission: No
[2024-01-27 08:00] VITALS: BP 130/63; PULSE 96; RESP 16; TEMP 36.2; O2SAT 94
[2024-01-27] MEDS: ONDANSETRON 4 MG ODT PO (08:22)
[2024-01-27] MEDS: TRAMADOL 50 MG TABLET PO (09:04)
[2024-01-27] MEDS: ASPIRIN EC 81 MG TABLET PO (09:04)
[2024-01-27] MEDS: ACETAMINOPHEN 325 MG TABLET 975 MG PO (09:04)
[2024-01-27] MEDS: MELOXICAM 7.5 MG TABLET 15 MG PO (09:04)
[2024-01-27] MEDS: DOCUSATE 100 MG CAPSULE PO (09:05)
[2024-01-27] MEDS: MAGNESIUM OXIDE 400 MG TABLET PO (09:05)
[2024-01-27] MEDS: polyethylene glycoL 3350 17 GM POWD.PACK PO (09:05)
--- NOTE | 2024-01-27 09:23 | CM.DPNOTE ---
DC Note Discharge home with spouse and [facility]. Emailed nikko Grider, to update that patient is returning home today. F2F, HH order and DC Summary previously faxed to nikko. No addtl. needs from this CM team. JW
--- NOTE | 2024-01-27 09:26 | PT.IPTN ---
Current Diagnoses Unilateral primary osteoarthritis, right knee (01/25/24) Broken internal right knee prosthesis, initial encounter (01/25/24) Presence of right artificial knee joint (01/25/24) Surgery Performed Operation Date: 01/25/24 11:45 Actual Procedures p Total Knee Arthroplasty Revision- uni to total KNEE ARTHROPLASTY REVISION WITH FEMORAL FRACTURE FIXATION(Right) - Magen Hartley MD Physical Therapy Treatment Note M2 PT-IP Current Condition Start: 01/26/24 12:37 Freq: NEEDED Status: Active Protocol: Document 01/26/24 09:55 AB (Rec: 01/26/24 12:55 AB [id number]) Physical Therapy Current Condition Current Condition Evaluation Date 01/26/24 Treatment Diagnosis s/p R TKA revision; difficulty in walking Onset Date 01/25/24 M3 PT-IP Subjective Start: 01/26/24 12:37 Freq: NEEDED Status: Active Protocol: Document 01/27/24 09:00 MB (Rec: 01/27/24 09:23 MB [id number]) Subjective Physical Therapy Visit Type Type Treatment Note Visit Start Time 08:48 Visit Stop Time 09:00 Number of LOAN INTERVIEWER Visits 0 Physical Therapy Visit Comments Patient Comments Pt is hypoverbal. and pt state they were waiting for PT to clear him for d/c. He has had nausea this morning and was given medication but he can't tolerate the pain medicatioin until it sets in and right knee pain is 10/10. Therapy Pain Assessment Pain When Pain Assessed At Rest Pain Present Pain Present Pain Reported Location Right Knee Intensity 10 Scale Used Numeric (0 - 10) Pain Management Techniques Distraction,Modification of Treatment M4 PT-IP Mobility and Gait Start: 01/26/24 12:37 Freq: NEEDED Status: Active Protocol: Document 01/27/24 09:00 MB (Rec: 01/27/24 09:26 MB [id number]) PT-Bed Mobility Assessment Supine to Sit Supine to Sit Contact Guard Assistance,Head of Bed Elevated Sit to Supine Sit to Supine Contact Guard Assistance,Head of Bed Elevated Scooting Scooting to Edge of Bed Contact Guard Assistance PT-Transfer Assessment Sit to and From Stand Sit to and from Stand Contact Guard Assistance Equipment Transfer Assistive Device Gait Belt,4 Wheeled Walker Comments Mobility Comments Pt is severely orthostatic and cannot make verbalizations once up on feet. BP and HR RUE : HOB at 60 de/69, 98; standing 86/51, 137. Pt took a few right side steps with 4WW and returned to bed, nsg nearby and to contact PA M5 PT-IP Objective Assessments Start: 01/26/24 12:37 Freq: NEEDED Status: Active Protocol: Document 01/26/24 09:55 AB (Rec: 01/26/24 12:55 AB [id number]) Orientation Orientation/Cognition Level of Alertness Alert Orientation Name,Place,Situation Language Function Ability No Deficits Noted Safety Awareness Decreased Safety Awareness Memory Description No Deficits Noted Gross Range of Motion Lower Extremity ROM Assessment Right Impaired Impairments R knee flexion: ~ 60 deg R knee extension: ~ 10 deg less to 0 Strength Lower Extremity Strength Assessment Right Impaired Hip 4/5 Knee 4-/5 Coordination Assessment Gross Coordination Gross Coordination WNL Sensation Assessment Sensation Gross Sensation WNL Muscle Tone Muscle Tone WNL Yes M6 PT-IP Treatment Start: 01/26/24 12:37 Freq: NEEDED Status: Active Protocol: Document 01/27/24 09:00 MB (Rec: 01/27/24 09:23 MB [id number]) Physical Therapy Treatment Other Treatments Other Treatment Performed Ed pt on findings of orthostatic hypotension, that cannot advance mobility given orthostatic hypotension, benefits of decreasing caffeine and alcohol intake and increasing non-caffeinated intake and considering electrolytes M7 PT-IP Assessment and Plan Start: 01/26/24 12:37 Freq: NEEDED Status: Active Protocol: Document 01/27/24 09:00 MB (Rec: 01/27/24 09:23 MB [id number]) PT Summary Assessment and Plan Potential Rehabilitation Potential Fair Summary Impairments Pain,Strength,Balance, Coordination,Cognition,Bed Mobility,Transfers,Gait, Activity Tolerance Progress Towards Goals Slow Progress due to Medical Issues Assessment Summary Pt with severe orthostatic hypotension this a.m. and could not find words/answer questions once dropped and returned to bed. Spoke with nsg and . and pt and nsg and PT agree that medical instability limits functional treatment. Pt has already performed steps with PT and and they understand stair mobility and reviewed platform step situation and no further questions. Pt has no more acute PT needs, just BP issues. Defer to MD for d/c. Goals Bed Mobility Goal Independent Transfer Goal Independent,Front Wheeled Walker Gait Goal Independent,Front Wheel Walker Gait Distance 200 Other Goals up/down 1 step using FWW SBA up/down 3 steps L rail SBA Days to Meet Goals 5 Frequency of Treatment Frequency Of Treatment Once a Day Treatment Plan Physical Therapy Treatment Plan Bed Mobility Training,Transfer Training,Gait Training, Therapeutic Exercise,Balance Retraining,Post Op Education, Discharge Planning,Hot or Cold Pack,Neuromuscular Re-ed, Coordination Retraining,Manual Therapy Weight Bearing Status Weight Bearing Status Weight Bear as Tolerated Allowed Weight Bearing Amount (enter % RLE WBAT or #) (%) Recommendations To Nursing Amount of Assist Needed 1 Person Assist Discharge Recommendations PT Discharge Recommendations Home with Assistance, Outpatient PT Transportation Needs at Discharge Private Vehicle
== END 2024-01-27 14:15 | disposition home health service (06) | DRG 468 ==
PROVIDERS: Admitting Provider Orthopaedic Surgery Adult Reconstructive Orthopaedic Surgery; PCP Optometrist; Referring Provider Orthopaedic Surgery Adult Reconstructive Orthopaedic Surgery; Visit Provider Orthopaedic Surgery Adult Reconstructive Orthopaedic Surgery
PROC: 0SRC0J9 Replacement of Right Knee Joint with Synthetic Substitute, Cemented, Open Approach (ICD-10-PCS; principal; 2024-01-25 11:45)
DX: T84.032A Mechanical loosening of internal right knee prosthetic joint, initial encounter (principal); T84.062A Wear of articular bearing surface of internal prosthetic right knee joint, initial encounter; M17.11 Unilateral primary osteoarthritis, right knee; E10.9 Type 1 diabetes mellitus without complications; R00.1 Bradycardia, unspecified; E78.5 Hyperlipidemia, unspecified; R33.9 Retention of urine, unspecified; E03.9 Hypothyroidism, unspecified; M96.661 Fracture of femur following insertion of orthopedic implant, joint prosthesis, or bone plate, right leg; Z96.41 Presence of insulin pump (external) (internal); Z87.891 Personal history of nicotine dependence
CPT/HCPCS: 36415; 73560; 82962; 85014; 85018; 87070; 87075; 87176; 87205; 97162; 97530; C1776; J0690; J1100; J1170; J2405; J2704; J3010; J3410